=== PATIENT | female | born 1965 | race Caucasian/White ===

== ENCOUNTER 2017-02-28 05:59 | Emergency (ER) | payer OTHER ==
[~2017-02-28] VITALS: Ht 167.6 cm; Wt 75.0 kg
[2017-02-28 06:00] VITALS: BP 147/89; PULSE 83; RESP 20; TEMP 98.5; O2SAT 100
--- NOTE | 2017-02-28 06:17 | PD ---
HPI Chief Complaint: Fall Time Seen by Provider: 06:17 Travel History International Travel<30 days: No Contact w/Intl Traveler<30days: No Traveled to known affect area: No History of Present Illness HPI 52-year-old female presents to the emergency department for evaluation of left- sided rib pain. Patient states that or days ago she had a trip and fall at the gym and landed directly on her left anterior lateral chest. She states the pain has been worsening since then. It is worse when she lies down. Denies any shortness of breath. No hemoptysis. Pain is an 8 out of 10. She states it was "very bad" this morning which is why she came in however while sitting up she states the pain seems to be alleviating. She denies any recent illnesses , fever, chills. She has no other symptoms to report. PFSH Past Medical History Medical History: Denies Significant Hx Immunizations Current: Yes Tetanus Vaccination: Unknown Influenza Vaccination: No ?: Unknown Social History Alcohol Use: No Tobacco Use: No Substance Use: No Allergies-Medications (Allergen,Severity, Reaction): Coded Allergies: Penicillin (Verified Allergy, Intermediate, 02/28/17) Reported Meds & Prescriptions Reported Meds & Active Scripts Active Lortab (Hydrocodone-Acetaminophen) 5-325 Mg Tab 1 Tab PO Q6H PRN Ibuprofen 600 Mg Tab 600 Mg PO Q8HR PRN Review of Systems Except as stated in HPI: all other systems reviewed are Neg Physical Exam Narrative GENERAL: Well-nourished, well-developed female patient, ambulatory and in no acute distress SKIN: Focused skin assessment warm/dry. HEAD: Normocephalic. EYES: No scleral icterus. No injection or drainage. NECK: Supple, trachea midline. No JVD or lymphadenopathy. CARDIOVASCULAR: Regular rate and rhythm without murmurs, gallops, or rubs. RESPIRATORY: Breath sounds equal bilaterally. No accessory muscle use. Even respirations. Tenderness elicited to palpation of the anterior lateral left rib cage. No crepitus. GASTROINTESTINAL: Abdomen soft, non-tender, nondistended. MUSCULOSKELETAL: No cyanosis, or edema. BACK: Nontender without obvious deformity. No CVA tenderness. Data Data Last Documented VS Vital Signs Date Time Temp Pulse Resp B/P Pulse Ox O2 Delivery O2 Flow Rate FiO2 02/28/17 07:19 75 16 127/74 99 02/28/17 06:00 98.5 Orders Chest, Single Ap (02/28/17 ) Ketorolac Inj (Toradol Inj) (02/28/17 06:30) MDM Medical Decision Making Medical Screen Exam Complete: Yes Emergency Medical Condition: Yes Medical Record Reviewed: Yes Differential Diagnosis Rib contusion versus fracture versus pneumothorax versus chest wall pain Narrative Course 52-year-old female presents to the emergency department for evaluation following a trip and fall 4 days ago. Patient has isolated tenderness to the left anterior lateral rib cage with no crepitus. Her vital signs are stable. She is able to take a deep inspiration without any difficulty. X-ray imaging is ordered as well as pain control. Xray imaging is without acute disease. Pt will be discharged home with pain control. She is encouraged to follow up with her primary care provider and return immediately with any acute worsening of symptoms Diagnosis Primary Impression: Contusion of rib on left side Qualified Code: S20.212A - Contusion of rib on left side, initial encounter Referrals: Primary Care Physician Patient Instructions: General Instructions, Rib Contusion (ED) Additional Instructions: Ice and/or warm moist heat may help to alleviate symptoms It is important that you continue to take deep breaths to reduce her risk of getting pneumonia Follow-up a primary care provider Return immediately with any acute worsening of symptoms. Med/Other Pt SpecificInfo: Prescription(s) given Scripts Hydrocodone-Acetaminophen (Lortab)5-325 Mg Tab1 Tab PO Q6H PRN (PAIN GREATER THAN 6) #15 TAB Ref 0 Prov:Dylan Aguilar MD 02/28/17 Ibuprofen 600 Mg [id number] Mg PO Q8HR PRN (PAIN) #30 TAB Ref 0 Prov:Dylan Aguilar MD 02/28/17 Disposition: 01 DISCHARGE HOME Condition: Stable Brenda Morrissey NGUYỄN February 28, 2017 06:17
[2017-02-28] MEDS ORDERED: IBUP-232 PO ×2 (06:29→06:55)
[2017-02-28] MEDS ORDERED: HYDR-3533 PO ×2 (06:30→06:55)
[2017-02-28] MEDS ORDERED: KETOROLAC TROMETHAMINE 60 MG/2 ML (IM) VIAL IM ONE (06:30)
--- NOTE | 2017-02-28 06:52 | RADRPT ---
EXAM DATE/TIME: 02/28/2017 06:49 [facility] COMPARISON: No previous studies available for comparison. INDICATIONS : Chest and left side pain. MEDICAL HISTORY : None. SURGICAL HISTORY : None. ENCOUNTER: Initial ACUITY: 1 day PAIN SCORE: 8/10 LOCATION: Bilateral chest FINDINGS: A single view of the chest demonstrates the lungs to be symmetrically aerated without evidence of mas s, infiltrate or effusion. The cardiomediastinal contours are unremarkable. Osseous structures are intact. CONCLUSION: No acute disease. Alfonzo Fallon MD on February 28, 2017 at 6:50 Board Certified Radiologist. This report was verified electronically.
[2017-02-28 07:19] VITALS: BP 127/74
== END 2017-02-28 07:20 | disposition home or self-care (01) ==
LOC: NEPC 05:59
DX: S20.212A Contusion of left front wall of thorax, initial encounter (principal); W01.0XXA Fall on same level from slipping, tripping and stumbling without subsequent striking against object, initial encounter
CPT/HCPCS: 71010; 96372; 99283; J1885